=== PATIENT | female | born 1950 | race Caucasian/White ===

== ENCOUNTER 2024-03-22 17:06 | Emergency (ER) | payer MEDICARE, OTHER ==
[2024-03-22 17:26] VITALS: O2SAT 99
--- NOTE | 2024-03-22 17:51 | ED Physician Documentation ---
PD HPI HEAD INJURY - Stated complaint Stated Complaint: FALL - Chief complaint Chief Complaint: Trauma Hd/Nk - History obtained from History obtained from: Patient - Additional information Additional information: 73-year-old woman who is visiting locally had a ground-level fall. She tripped over a piece of luggage and hit the pavement quite hard with her face. There is no loss of consciousness. She does have a headache. Tetanus is unknown. PD PAST MEDICAL HISTORY - Past Medical History Past Medical History: Yes Cardiovascular: Hypertension, High cholesterol - Past Surgical History Past Surgical History: Yes /[employer]: Hysterectomy - Allergies Allergies/Adverse Reactions: Allergies Allergy/AdvReac Type Severity Reaction Status Date / Time No Known Drug Allergies Allergy Verified 03/22/24 17:13 - Social History Does the pt smoke?: No Smoking Status: Never smoker Does the pt drink ETOH?: No Does the pt have substance abuse?: No - Immunizations Immunizations are current?: Yes PD ED PE NORMAL - Vitals Vital signs reviewed: Yes - General General: Alert and oriented X 3, No acute distress - HEENT HEENT: PERRL, EOMI, Other (She has abrasions, some deep over the forehead and the bridge of the nose. The bridge of the nose is tender and swollen. No evidence of entrapment or other facial bony tenderness.) - Neck Neck: Supple, no meningeal sign, No bony TTP - Neuro Neuro: Alert and oriented X 3, car shifter 2-12 intact Eye Opening: Spontaneous Motor: Obeys Commands Verbal: Oriented GCS Score: 15 Results - Vitals Vitals: Vital Signs - 24 hr 03/22/24 03/22/24 17:13 19:33 Temperature 36.8 C Heart Rate 73 65 Respiratory 16 16 Rate Blood Pressure 106/85 H 134/66 H O2 Saturation 99 99 Oxygen O2 Source Room air - Rads (name of study) CT of the head and face demonstrates nasal fracture, no intracranial injury. Relevant Findings:: Final report received, EMP independent interpretation of test PD Medical Decision Making - ED course ED course: She presents after head and facial injuries after a fall. She does have a nasal fracture with some deep abrasions on the face. These were cleansed and dressed by the RN and she was counseled on follow-up. She is going back to [place]. Departure - Departure Disposition: 01 Home, Self Care Clinical Impression: Head injury Qualifiers: Encounter type: initial encounter Qualified Code(s): S09.90XA - Unspecified injury of head, initial encounter Nasal fracture Qualifiers: Encounter type: initial encounter Fracture type: closed Qualified Code(s): S02.2XXA - Fracture of nasal bones, initial encounter for closed fracture Condition: Good Record reviewed to determine appropriate education?: Yes Instructions: ED Fx Nasal Conf W X Ray, ED Head Injury Closed Comments: The CAT scan of your head was normal. On the CT of your face it looks like you do have a broken nose. It does not look crooked to me. You are planning to see a facial surgeon on return home to [place] which is appropriate. Take the CAT scan on CD with you to aid in that follow-up and consultation. In the meantime, for the wounds you can wash with soap and water and then apply bacitracin ointment and a dressing. Try to keep it out of the sun as that will make scarring worse. Return for new or worsening symptoms. Tylenol and/or ibuprofen as needed for pain. Forms: PCP List Discharge Date/Time: 03/22/24 19:38
[2024-03-22] MEDS: BACITRACIN ZINC OINT 1 PACKET TOP STA (18:18)
[2024-03-22] MEDS: TETANUS/DIPHTHERIA/PERTUSSIS 0.5 ML SYRINGE IM ONE (18:34)
--- NOTE | 2024-03-22 18:54 | CT Report ---
PROCEDURE: Head WO INDICATIONS: head inj TECHNIQUE: Noncontrast 4.5 mm thick angled axial sections acquired from the foramen magnum to the vertex. For r adiation dose reduction, the following was used: automated exposure control, adjustment of mA and/or kV according to patient size. COMPARISON: None. FINDINGS: Image quality: Diagnostic. CSF spaces: Basal cisterns are patent. No extra-axial fluid collections. Ventricles are normal in size and shape. Brain: No midline shift. No intracranial masses or hemorrhage. Alexander-white matter interface is norm al. Skull and face: Calvarium and visualized facial bones are intact, without suspicious lesions. Sinuses: Visualized sinuses and mastoids are clear. IMPRESSION: No acute intracranial pathology. Reviewed by: Clarissa Watson MD, PhD on 03/22/2024 6:53 PM PDT Approved by: Clarissa Watson MD, PhD on 03/22/2024 6:53 PM PDT Station ID: [id number]
--- NOTE | 2024-03-22 19:02 | CT Report ---
PROCEDURE: Maxillofacial WO INDICATIONS: face inj TECHNIQUE: Noncontrast 1.5 mm thick axial images acquired from the mandible through the frontal sinuses, with co ashish and sagittal reformatting. For radiation dose reduction, the following was used: automated ex posure control, adjustment of mA and/or kV according to patient size. COMPARISON: None. FINDINGS: Image quality: Diagnostic. Bones and teeth: Orbital hernandez are intact. Sinus hernandez show no fracture or deformity. There is mild areas of cortical irregularity in the bilateral nasal bones, which may represents chron ic remodeling versus acute fracture. There is associated mild soft tissue swelling and foci of gas. N maureen septum is intact. Visualized portions of the mandible demonstrate no fractures or subluxation. Zygomatic arches are in tact. Pterygoid plates are intact. Visualized portions of the skull base and auditory canals are in tact. Sinuses: Paranasal sinuses are aerated, without fluid levels, mucosal thickening, or mucoceles. Mas toid air cells are aerated. Soft tissues: Soft tissue swelling adjacent to nasal bone fractures. No enlarged lymph nodes. No so ft tissue lacerations or debris. Bilateral lens replacement. Vascular: Visualized vascular structures appear normal in the absence of contrast. Bony vascular fo ramina and canals are intact. IMPRESSION: Query bilateral nasal bone fractures with mild associated soft tissue swelling. Nasal se ptum is intact. Reviewed by: Clarissa Watson MD, PhD on 03/22/2024 7:01 PM PDT Approved by: Clarissa Watson MD, PhD on 03/22/2024 7:01 PM PDT Station ID: [id number]
[2024-03-22 19:43] VITALS: BP 134/66
== END 2024-03-22 19:38 | disposition home or self-care (01) ==
LOC: ED 17:06
DX: S09.90XA Unspecified injury of head, initial encounter (principal); S02.2XXA Fracture of nasal bones, initial encounter for closed fracture; W01.0XXA Fall on same level from slipping, tripping and stumbling without subsequent striking against object, initial encounter; I10 Essential (primary) hypertension; E78.00 Pure hypercholesterolemia, unspecified
CPT/HCPCS: 70450; 70486; 99283; 99284; A9270